=== PATIENT | female | born 1980 | race African-American/Black ===

== ENCOUNTER 2017-01-10 11:56 | Emergency (ER) | payer SELFPAY ==
--- NOTE | ~2017-01-10 | US67 ---
[facility] A Service of [facility] & [facility] RADIOLOGY TEXT RESULTS PATIENT: SUSANNE ROSEN LOCATION: [facility] : 82 UNIT #: [id number] AGE: [address]: Grecia Wellington SEX: F ORDER DR: [id number] [facility] [address] [place], [place] [address] [id number] MR#: [id number] Acc #: [id number] NAME: SUSANNE ROSEN : 1980 SEX: F STUDY DATE/TIME: 01/10/2017 13:31 UNIT: [facility] ROOM: STUDY DESCRIPTION: US Gallbladder Attending Physician: Grecia Wellington P.A.-C. Ordering Physician: Grecia Wellington P.A.-C. Primary Care Physician: Primary Care Physician No MEDICAL IMAGING REPORT This report is preliminary unless electronic signature is present EXAM Gallbladder ultrasound HISTORY Right upper quadrant pain for two weeks FINDINGS The visualized portions of the pancreas appear normal. The liver is normal in appearance. Gallbladder is adequately distended and appears normal. The common bile duct is 4 mm in diameter. The right kidney is normal in appearance. IMPRESSION Normal right upper quadrant ultrasound. Dictated by... Jakob Deleon M.D. THIS IS AN ELECTRONICALLY VERIFIED REPORT Jakob Deleon M.D. at 01/11/2017 7:06 AM FEL/to TD: 01/10/2017 18:16 JOB #: [id number] MEDICAL IMAGING REPORT Page 1 of 1 COPY
--- NOTE | ~2017-01-10 | CT16 ---
[facility] A Service of [facility] RADIOLOGY TEXT RESULTS PATIENT: SUSANNE ROSEN LOCATION: [facility] : 82 UNIT #: [id number] AGE: [address]: Grecia Wellington SEX: F ORDER DR: [id number] [place] [address] [place], [place] [address] [id number] E MR#: [id number] Acc #: [id number] NAME: SUSANNE ROSEN : 1980 SEX: F STUDY DATE/TIME: 01/10/2017 14:21 UNIT: [facility] ROOM: STUDY DESCRIPTION: CT Angio Chest for PE Attending Physician: Grecia Wellington P.A.-C. Ordering Physician: Grecia Wellington P.A.-C. Primary Care Physician: No Primary Care Physician MEDICAL IMAGING REPORT This report is preliminary unless electronic signature is present EXAM Chest CT with contrast with CT angiography. HISTORY Chest pain radiating to the right shoulder for the past 2 weeks with an elevated D-dimer. TECHNIQUE Axial imaging was obtained through chest with contrast. 80 mL of Isovue was used. CT angiography was performed with thick sliding MIPs in the sagittal and coronal projections. This CT exam was performed with one or more of the following radiation dose reduction techniques: automatic exposure control, adjustment of mA and/or kV according to patient size, and iterative reconstruction. FINDINGS Chest images at mediastinal window show good filling of the pulmonary arteries. There are no pulmonary filling defects to suggest emboli. There are no enlarged mediastinal or hilar lymph nodes. The CT angiographic images also show no evidence of emboli. Lung window imaging shows both lungs to be fully expanded and clear. IMPRESSION Negative chest CTA. Dictated by... Champ Sharp M.D. THIS IS AN ELECTRONICALLY VERIFIED REPORT Champ Sharp M.D. at 01/11/2017 6:47 AM ELIZABETH/demetria [facility] A Service [facility] RADIOLOGY TEXT RESULTS PATIENT: SUSANNE ROSEN LOCATION: [facility] #: [id number] : 82 UNIT #: [id number] AGE: [address]: Grecia Wellington SEX: F ORDER DR: TD: 01/10/2017 18:53 JOB #: [id number] MEDICAL IMAGING REPORT Page 1 of 1 COPY
--- NOTE | ~2017-01-10 | EKG ---
PATIENT: SUSANNE ROSEN UNIT #: [id number] Ventricular Rate: 63 BPM Atrial Rate: 63 BPM P-R Interval: 170 ms QRS Duration: 82 ms Q-T Interval: 422 ms QTC Calculation(Bezet): 431 ms P Dudley: 35 degrees Calculated R Dudley: 5 degrees Calculated T Dudley: 31 degrees Diagnosis Line: Normal sinus rhythm Diagnosis Line: Normal ECG Diagnosis Line: No previous ECGs available Diagnosis Line: Confirmed by OMAR ABBOTT MD ([id number]) on Diagnosis Line: 01/12/2017 7:55:45 AM INTERPRETING MD: MILENA BOYD
[~2017-01-10 11:56] MED LIST: BACTRIM 400-801 TA1; CLINDAMYCIN HC300 MG PO; FLEXERIL10 M1 PO; IBUPROFEN800 MG; KEFLEX; NO MEDICATIONS; NORCO1 TAB 10/3 PO; VICODIN; VOLTAREN50 MG PO
[2017-01-10 13:03] LABS: BASOPHIL% 1.2 % (0-2.5); EOSINOPHIL% 1.1 % (0.0-7.0); HEMATOCRIT 40.4 % (35.0-45.0); HEMOGLOBIN 13.3 gm/dL (12.0-16.0); LYMPHOCYTE# 2.4 X10e3 (1.0-3.5); MEAN CORPUSCULAR HEMOGLOBIN 27.4 PG (28-34); MEAN PLATELET VOLUME 7.9 FL (6.5-11.5); MONOCYTE# 0.2 X10e3 (0-1.0); MONOCYTE% 5.4 % (3.0-12.0); NEUTROPHIL# 1.2 X10e3 (1.5-7.1); NEUTROPHIL% 31.3 % (40-75); PLATELET COUNT 263 X10e3 (140-420); RED BLOOD COUNT 4.87 X10e (3.90-5.30); RED CELL DISTRIBUTION WIDTH 13.4 % (11.0-15.5); WHITE BLOOD COUNT 3.9 X10e3 (4.0-10.5)
[2017-01-10 13:04] LABS: DIFF IND YES
[2017-01-10 13:13] LABS: POC - CKMB <1.0 ng/mL (0.0-7.9); POC - TROPONIN <0.05 ng/mL (<=0.05)
[2017-01-10 13:24] LABS: ALBUMIN SERUM 3.8 g/dL (3.5-5.0); BILIRUBIN, DIRECT 0.1 mg/dL (0.0-0.2); BILIRUBIN,INDIRECT 0.6 mg/dL (0.0-0.9); BILIRUBIN,TOTAL 0.7 mg/dL (0.2-2.0); BUN/CREATININE RATIO 12.85; CALCIUM SERUM 8.8 mg/dL (8.4-10.2); CREATININE SERUM 0.7 mg/dL (0.6-1.4); GLOM FILT RATE Estimated 130.1 mL/min (>60); POTASSIUM 3.8 mmol/L (3.5-5.1); PROTEIN TOTAL SERUM 8.1 g/dL (6.0-8.3)
[2017-01-10 13:46] LABS: PLATELET ESTIMATE NORMAL (NORMAL)
== END 2017-01-10 15:10 | disposition home or self-care (01) ==
LOC: CFTX 11:56 → CED 11:56 → CFTX 12:59
PROVIDERS: Physician Assistant
DX: M25.511 Pain in right shoulder (principal); R07.89 Other chest pain; F17.210 Nicotine dependence, cigarettes, uncomplicated; Z79.899 Other long term (current) drug therapy
CPT/HCPCS: 36415; 71275; 76705; 80048; 80076; 82553; 83690; 84484; 84703; 85025; 85379; 93005; 96374; 99284; J1885; Q9967